=== PATIENT | female | born 1935 | race Caucasian/White ===

== ENCOUNTER 2018-03-27 14:02 | Inpatient (IN) | payer MEDICARE, OTHER ==
[2018-03-27 14:46] LABS: ADD MAN DIFF? NO
[2018-03-27 14:49] LABS: Allen Test ACCEPTAB; Arterial Base Excess -1.8 mmol/L (-3.0-3); Arterial Blood Gas Oxygen Sat 93.2 mmHG (95.0-100.0); Arterial COHb 0.2 % (0.0-3.0); Arterial Fraction of Oxyhgb 92.8 % (93.0-99.0); Arterial HCO3 21.7 mmol/L (22.0-26.0); Arterial MetHb 0.2 % (0.0-1.5); Arterial pCO2 33.3 mmhg (35-45); MODE ROOM AIR; Site Right Radial
[2018-03-27 14:55] LABS: WHITE BLOOD COUNT 10.6 10^3/ul (4.8-10.8)
[2018-03-27 14:55] LABS: BASOPHILS % 0.3 % (0.0-2.0); EOSINOPHILS # 0.2 10^3/ul (0.0-0.5); EOSINOPHILS % 1.4 % (0.0-7.0); HEMATOCRIT 40.7 % (37.0-47.0); HEMOGLOBIN 13.3 g/dl (12.0-16.0); LYMPHOCYTES % 9.7 % (15.0-51.0); MEAN CORPUSCULAR HGB CONC 32.7 g/dl (32.0-37.0); MEAN CORPUSCULAR VOLUME 94.9 fl (82.0-101.0); MEAN PLATELET VOLUME 11.2 fl (7.4-10.4); MONOCYTES % 9.1 % (0.0-11.0); NEUTROPHIL # 8.4 10^3/ul (1.6-7.5); NEUTROPHILS % 79.2 % (39.0-77.0); PLATELET COUNT 183 10^3/UL (140-415); RED BLOOD COUNT 4.29 10^6/ul (4.20-5.40); RED CELL DISTRIBUTION WIDTH 12.2 % (11.5-14.5)
[2018-03-27 15:08] LABS: INR 1.07; PT RATIO 1.1
[2018-03-27 15:09] LABS: PARTIAL THROMBOPLASTIN TIME 26.1 Sec (23.0-35.0)
[2018-03-27 15:12] LABS: ALANINE AMINOTRANSFERASE 24 IU/L (13-69); ALBUMIN 3.3 g/dl (3.3-4.9); ALBUMIN/GLOBULIN RATIO 1.03; ALKALINE PHOSPHATASE 97 IU/L (42-121); ANION GAP 12 (5-13); ASPARTATE AMINO TRANSFERASE 16 IU/L (15-46); BILIRUBIN,INDIRECT 0.1 mg/dl (0-1.1); BILIRUBIN,TOTAL 0.1 mg/dl (0.2-1.3); BLOOD UREA NITROGEN 42 mg/dl (7-20); CALCIUM 9.3 mg/dl (8.4-10.2); CARBON DIOXIDE 26 mmol/L (21-31); CHLORIDE 106 mmol/L (97-110); CREATININE 1.29 mg/dl (0.44-1.00); GLUCOSE 141 mg/dl (70-220); POTASSIUM 4.2 mmol/L (3.5-5.1); SODIUM 144 mmol/L (135-144); TOTAL PROTEIN 6.5 g/dl (6.1-8.1)
[2018-03-27 15:23] LABS: B-TYPE NATRIURETIC PEPTIDE 177 PG/ML (0-450); TROPONIN-I < 0.012 ng/ml (0.000-0.120)
[2018-03-27 15:40] LABS: ADD UMIC YES; UR ASCORBIC ACID NEGATIVE (NEGATIVE); UR BACTERIA FEW /HPF (NONE SEEN); UR BILIRUBIN (Dip) NEGATIVE (NEGATIVE); UR BLOOD (Dip) NEGATIVE (NEGATIVE); UR CLARITY TURBID (CLEAR); UR COLOR YELLOW (YELLOW); UR GLUCOSE (Dip) NEGATIVE (NEGATIVE); UR KETONES (Dip) NEGATIVE (NEGATIVE); UR LEUKOCYTE ESTERASE (Dip) 2+ Leu/ul (NEGATIVE); UR NITRITE (Dip) POSITIVE (NEGATIVE); UR RBC 53 /HPF (0-5); UR TOTAL PROTEIN (Dip) 3+ mg/dl (NEGATIVE); UR UROBILINOGEN (Dip) NEGATIVE (NEGATIVE); UR WBC > 182 /HPF (0-5)
[2018-03-27] MEDS: CEFTRIAXONE 1 GM/50 ML (PMX) 50 ML IVPB ×2 (16:00→17:51)
[2018-03-27] MEDS: SOD CHLORIDE 0.9% 100 ML (16:27)
[2018-03-27] MEDS: IODIXANOL LOCM 100 ML BTL (16:27)
[2018-03-27] MEDS: SOD CHLORIDE 0.9% 1,000 ML IV (16:48)
[2018-03-27] MEDS: CEFEPIME 1GM/50 ML (PMX) 50 ML IVPB (16:49)
[2018-03-27] MEDS: ENOXAPARIN 80 MG/0.8 ML SYG SC (17:28)
[2018-03-27] MEDS ORDERED: ZOLPIDEM 5 MG TAB PO (17:30)
[2018-03-27] MEDS ORDERED: BISACODYL (EC) 5 MG TAB PO (17:30)
[2018-03-27] MEDS ORDERED: ONDANSETRON 4 MG INJ IV (17:30)
[2018-03-27] MEDS ORDERED: ACETAMINOPHEN 325 MG TAB PO ×2 (17:30)
[2018-03-27] MEDS: VANCOMYCIN 1 GM (PMX) 250 ML IVPB (17:51)
[2018-03-27] MEDS ORDERED: NACL 0.9% 3 ML SYG IV (19:30)
[2018-03-27 19:41] LABS: LACTIC ACID 1.1 mmol/L (0.5-2.0)
[2018-03-28] MEDS: ENOXAPARIN 80 MG/0.8 ML SYG SC
[2018-03-28 05:29] LABS: ADD MAN DIFF? NO; BASOPHILS % 0.4 % (0.0-2.0); EOSINOPHILS # 0.4 10^3/ul (0.0-0.5); EOSINOPHILS % 5.4 % (0.0-7.0); HEMATOCRIT 35.7 % (37.0-47.0); HEMOGLOBIN 11.8 g/dl (12.0-16.0); LYMPHOCYTES # 1.4 10^3/ul (0.8-2.9); LYMPHOCYTES % 19.9 % (15.0-51.0); MEAN CORPUSCULAR HEMOGLOBIN 31.5 pg (29.0-33.0); MEAN CORPUSCULAR HGB CONC 33.1 g/dl (32.0-37.0); MEAN CORPUSCULAR VOLUME 95.2 fl (82.0-101.0); MEAN PLATELET VOLUME 11.1 fl (7.4-10.4); MONOCYTE # 0.7 10^3/ul (0.3-0.9); MONOCYTES % 10.1 % (0.0-11.0); NEUTROPHIL # 4.5 10^3/ul (1.6-7.5); NEUTROPHILS % 63.9 % (39.0-77.0); PLATELET COUNT 156 10^3/UL (140-415); RED BLOOD COUNT 3.75 10^6/ul (4.20-5.40)
[2018-03-28] MEDS: RIVAROXABAN 15 MG TABLET PO ×3 (05:43→18:33)
[2018-03-28 06:27] LABS: ANION GAP 8 (5-13)
[2018-03-28 06:28] LABS: ALANINE AMINOTRANSFERASE 23 IU/L (13-69); ALBUMIN 2.5 g/dl (3.3-4.9); ALBUMIN/GLOBULIN RATIO 0.96; ALKALINE PHOSPHATASE 79 IU/L (42-121); ASPARTATE AMINO TRANSFERASE 13 IU/L (15-46); BILIRUBIN,INDIRECT 0.3 mg/dl (0-1.1); BILIRUBIN,TOTAL 0.3 mg/dl (0.2-1.3); BLOOD UREA NITROGEN 33 mg/dl (7-20); CALCIUM 8.7 mg/dl (8.4-10.2); CARBON DIOXIDE 25 mmol/L (21-31); CHLORIDE 112 mmol/L (97-110); CREATININE 0.94 mg/dl (0.44-1.00); GLUCOSE 110 mg/dl (70-220); POTASSIUM 3.8 mmol/L (3.5-5.1); SODIUM 145 mmol/L (135-144); TOTAL PROTEIN 5.1 g/dl (6.1-8.1)
[2018-03-28 06:44] LABS: HEMOGLOBIN A1C 6.2 % (0-5.9)
[2018-03-28] MEDS: AMLODIPINE 5 MG TAB PO (09:07)
[2018-03-29] MEDS: AMLODIPINE 5 MG TAB PO (08:18)
[2018-03-29] MEDS: RIVAROXABAN 15 MG TABLET PO ×2 (08:18→17:52)
[2018-03-29] MEDS: CEFTRIAXONE 1 GM/50 ML (PMX) 50 ML IVPB (15:27)
[2018-03-30] MEDS: RIVAROXABAN 15 MG TABLET PO (08:34)
[2018-03-30] MEDS: AMLODIPINE 5 MG TAB PO (08:35)
[2018-03-30] MEDS: CEFTRIAXONE 1 GM/50 ML (PMX) 50 ML IVPB (12:01)
== END 2018-03-30 14:21 | DRG 176 ==
LOC: E/R 14:02 → 6WM 17:26
PROC: 4A033R1 Measurement of Arterial Saturation, Peripheral, Percutaneous Approach (ICD-10-PCS; principal; 2018-03-27)
DX: I26.99 Other pulmonary embolism without acute cor pulmonale (principal); N17.9 Acute kidney failure, unspecified; N39.0 Urinary tract infection, site not specified; R09.02 Hypoxemia; R53.81 Other malaise; F03.90 Unspecified dementia, unspecified severity, without behavioral disturbance, psychotic disturbance, mood disturbance, and anxiety
CPT/HCPCS: 36415; 36600; 71045; 71275; 80053; 81001; 82803; 83036; 83605; 83880; 84484; 85025; 85610; 85730; 87040; 87081; 87086; 87400; 93005; 96374; 96375; 99285-25